=== PATIENT | male | born 2005 | race Caucasian/White ===

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

== ENCOUNTER 2025-05-27 19:44 | Emergency (ER) | payer OTHER ==
[~2025-05-27 19:44] MED LIST: Iopamidol 370 76% 100 ML VIAL ONE
[2025-05-27] MEDS ORDERED: Ondansetron PF 4 MG/2 ML Vial ONE (20:17)
[2025-05-27 20:21] LABS: #Basophils 0.1 thou/uL (0.0-0.2); #Eosinophils 0.3 thou/uL (0.0-0.7); #Lymphocytes 3.2 thou/uL (1.20-3.40); #Monocytes 0.8 thou/uL (0.11-0.59); #Neutrophils 5.4 thou/uL (1.40-6.50); %Basophils 0.9 % (0.0-1.0); %Eosinophils 2.6 % (0.0-10.0); %Lymphocytes 32.8 % (28.0-48.0); %Monocytes 7.8 % (0.0-4.0); %Neutrophils 55.9 % (31.0-61.0); Hematocrit 47.2 % (42.0-52.0); Hemoglobin 15.2 g/dL (14.0-18.0); Mean Corpuscular Hemoglobin 29.0 pg (25.0-35.0); Mean Corpuscular Volume 90.2 fl (78.0-98.0); Platelet Count 213 10x3/uL (130-400); Red Blood Cell (RBC) Count 5.23 mill/uL (4.00-5.20); White Blood Cell (WBC) Count 9.7 10x3/uL (4.8-10.8)
[2025-05-27 20:38] LABS: ALT (SGPT) 15 U/L (Less than 45); AST (SGOT) 19 U/L (11-34); Albumin 4.4 g/dL (3.1-4.5); Alkaline Phosphatase 70 U/L (50-130); Anion Gap 14 mmol/L (10-20); BUN (Urea Nitrogen) 11 mg/dL (8.9-20.6); Bilirubin, Total 0.4 mg/dL (0.3-1.2); Calc. Creatinine Clearance 0 mL/min (70-130); Calcium 9.4 mg/dL (7.8-10.44); Carbon Dioxide 25 mmol/L (22-29); Chloride 107 mmol/L (98-107); Globulin 3.1 g/dL (2.4-3.5); Glucose 93 mg/dL (70-105); Lipase 39 U/L (8-78); Potassium 4.1 mmol/L (3.5-5.1); Sodium 142 mmol/L (136-145)
[2025-05-27 21:16] LABS: Glucose, Urine (Dipstick) Negative (Negative); Leukocyte Negative (Negative); Protein, Urine (Dipstick) Negative (Neg-Trace); Specific Gravity, Urine 1.015 (1.005-1.030)
[2025-05-27 21:19] LABS: Bacteria/HPF Rare-Few HPF (None Seen); CAUTI Indications for Culture Pelvic or flank pain; RBC/HPF 0-3 HPF (0-3); Urine Culture Reflex No No; WBC/HPF 0-3 HPF (0-3)
[2025-05-27] MEDS ORDERED: Ketorolac Tromethamine 30 MG (1 mL) VIAL ONE (21:27)
== END 2025-05-27 21:34 | disposition home or self-care (01) ==
LOC: MADERS 19:44
DX: R10.11 Right upper quadrant pain (principal); R07.81 Pleurodynia; R10.816 Epigastric abdominal tenderness
CPT/HCPCS: 74177; 80053; 81001; 83605; 83690; 85025; 96374; 96375; J1885; J2270; J2405; Q9967